=== PATIENT | male | born 2000 | race American Indian/Alaskan Native ===

== ENCOUNTER 2025-03-09 18:25 | Emergency (ER) | payer OTHER, SELFPAY ==
[2025-03-09 18:38] VITALS: PULSE 104; RESP 18; O2SAT 99
[2025-03-09 18:41] VITALS: BP 152/90; PULSE 118; RESP 19; TEMP 36.8; O2SAT 95
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
[2025-03-09] MEDS: DIPHTH,PERTUSS(ACELL),TET VAC 0.5 ML SYR- ADULT IMi (19:57)
== END 2025-03-09 20:00 ==
PROVIDERS: Emergency Provider Emergency Medicine
DX: Z02.89 Encounter for other administrative examinations (principal); S01.511A Laceration without foreign body of lip, initial encounter; S00.83XA Contusion of other part of head, initial encounter; V89.2XXA Person injured in unspecified motor-vehicle accident, traffic, initial encounter; Z23 Encounter for immunization
CPT/HCPCS: 12011; 71045; 90471; 90715; 99283